=== PATIENT | male | born 1965 | race Native Hawaiian/Other Pacific Islander ===

== ENCOUNTER 2020-04-05 19:15 | Emergency (ER) | payer OTHER ==
[~2020-04-05] VITALS: Ht 182.9 cm; Wt 141.1 kg
[2020-04-05 19:15] VITALS: BP 165/85; TEMP 97.3
[2020-04-05 19:49] LABS: PLATELET COUNT 286 K/uL (142-355)
[2020-04-05 20:00] LABS: POTASSIUM 4.6 mmol/L (3.6-5.2)
[2020-04-05 22:38] LABS: POTASSIUM 4.1 mmol/L (3.6-5.2)
[2020-04-06] MEDS ORDERED: PERCOCET1 TA3 PO (00:53)
[2020-04-06] MEDS ORDERED: AIRBORNE PO (00:58)
[2020-04-06] MEDS ORDERED: DULOXETINE HYDR60 MG PO (00:59)
[2020-04-06] MEDS ORDERED: BACLOFEN20 MG PO (00:59)
[2020-04-06] MEDS ORDERED: ACID CONTROL20 MG PO (01:00)
[2020-04-06] MEDS ORDERED: ZESTRIL40 MG PO (01:01)
[2020-04-06] MEDS ORDERED: MOBIC15 MG PO (01:02)
[2020-04-06] MEDS ORDERED: CLARITIN10 MG PO (01:02)
[2020-04-06] MEDS ORDERED: METF500T PO (01:03)
[2020-04-06] MEDS ORDERED: METO100T37 PO (01:04)
[2020-04-06] MEDS ORDERED: QUET100T2 PO (01:05)
[2020-04-06] MEDS ORDERED: [UNRECOGNIZED DRUG - OTHER] PO (01:05)
[2020-04-06] MEDS ORDERED: DOXE25CA18 PO (01:06)
[2020-04-06] MEDS ORDERED: LIPITOR10 MG PO (01:06)
[2020-04-06] MEDS ORDERED: MELATONIN3 M1 PO (01:08)
[2020-04-06] MEDS ORDERED: RISP2TAB2 PO (01:09)
[2020-04-06] MEDS ORDERED: TUMS500 MG PO (01:10)
[2020-04-06] MEDS ORDERED: LOPERAMIDE2 MG PO (01:16)
[2020-04-06] MEDS ORDERED: DIPHENHIST25 MG PO (01:17)
[2020-04-06] MEDS ORDERED: MILK THISTL PO (01:19)
[2020-04-06] MEDS ORDERED: NITR0.4S2 SL (01:20)
[2020-04-06] MEDS ORDERED: PROMETHAZINE25 MG/M1 IM (01:21)
[2020-04-06] MEDS ORDERED: ORAGEL DT (01:23)
[2020-04-06] MEDS ORDERED: DICL1GEL2 TOP (01:24)
[2020-04-09] MEDS ORDERED: RISP0.25 PO (09:55)
[2020-04-09] MEDS ORDERED: DIVALPROEX500 MG PO (09:55)
== END 2020-04-05 23:43 | disposition still patient (30) ==
LOC: ED 19:23
PROVIDERS: Emergency Medicine Emergency Medical Services
DX: F32.89 Other specified depressive episodes (principal); E87.1 Hypo-osmolality and hyponatremia; Z11.59 Encounter for screening for other viral diseases; Z04.6 Encounter for general psychiatric examination, requested by authority
CPT/HCPCS: 36415; 80048; 80053; 81000; 85027; 87635; 93005; 99283; U0003